=== PATIENT | female | born 1945 | race Caucasian/White ===

== ENCOUNTER 2019-09-07 10:05 | Observation (INO) ==
--- NOTE | 2019-09-03 09:09 | PAT Medication Instructions ---
Medication Instructions Date of Service September 03, 2019 Home Medications Medication Instructions Recorded meloxicam 15 mg tablet 15 mg PO DAILY PRN #30 tab 04/17/19 miscellaneous medical supply #1 ea 08/13/19 meloxicam 15 mg tablet 15 mg PO DAILY PRN acetaminophen [Tylenol Extra Strength] 1,000 mg PO Q6H PRN ascorbic acid (vitamin C) [Vitamin C] 500 mg PO BID fexofenadine 180 mg PO QAM losartan 25 mg PO QAM multivitamin 1 tab PO QAM pantoprazole 40 mg PO BID pravastatin 40 mg PO QPM ASK your surgeon for instructions meloxicam 15 mg tablet 15 mg PO DAILY PRN DO NOT take the morning of surgery fexofenadine 180 mg PO QAM losartan 25 mg PO QAM multivitamin 1 tab PO QAM ascorbic acid (vitamin C) [Vitamin C] 500 mg PO BID Take morning of surgery With a small sip of water, OTHERWISE NOTHING TO EAT OR DRINK AFTER MIDNIGHT: pantoprazole 40 mg PO BID acetaminophen [Tylenol Extra Strength] 1,000 mg PO Q6H PRN (okay to take up to 4 hours prior to surgery if needed) Take evening before surgery pantoprazole 40 mg PO BID pravastatin 40 mg PO QPM acetaminophen [Tylenol Extra Strength] 1,000 mg PO Q6H PRN (if needed) ascorbic acid (vitamin C) [Vitamin C] 500 mg PO BID Other Notes If you have any questions please call us at [phone] or [phone] or [phone] or [phone]
--- NOTE | 2019-09-03 10:59 | Anesthesiology Consultation ---
Date of Service September 03, 2019 Assessment & Plan (1) Encounter for pre-operative examination: Chart Review Chart Review: Acceptable Risk for Surgery and Patient seen in Pre Admission Testing Per PAT appt on 09/03/19, pt resides in [facility]- otherwise denies travel. Pt denies any known contact with PUI/Covid positive patients. No current Covid related symptoms. Pt getting Covid testing done three days prior to surgery- results pending Teaching & Discussion Pre-Anesthesia Teaching/Discussion Notes: Instructed NPO after midnight before surgery,except medications with 15 cc of water. Medication instructions provided according to the PAT guidelines. History Surgery Operation Date: 09/07/19 07:00 Proposed Procedures p Right Total Knee Arthroplasty - Loc Frey MD Height/Weight Height: 4 ft 11 in Weight: 81.2 kg Allergies Allergy/AdvReac Type Severity Reaction Status Date / Time No Known Allergies Allergy Verified 08/30/19 11:33 Medications Home Medications Medication Instructions Recorded Confirmed Last Taken meloxicam 15 mg tablet 15 mg PO DAILY PRN #30 tab 04/17/19 08/30/19 Unknown acetaminophen [Tylenol Extra 1,000 mg PO Q6H PRN 07/05/19 08/30/19 Unknown Strength] ascorbic acid (vitamin C) [Vitamin 500 mg PO BID 07/05/19 08/30/19 Unknown C] fexofenadine 180 mg PO QAM 07/05/19 08/30/19 Unknown losartan 25 mg PO QAM 07/05/19 08/30/19 Unknown multivitamin 1 tab PO QAM 07/05/19 08/30/19 Unknown pantoprazole 40 mg PO BID 07/05/19 08/30/19 Unknown pravastatin 40 mg PO QPM 07/05/19 08/30/19 Unknown miscellaneous medical supply #1 ea 08/13/19 08/30/19 Unknown Past Medical History Medical History GERD (gastroesophageal reflux disease) Well controlled and stable Hyperlipidemia Hypertension Osteoarthritis Exercise / Class Metabolic Activity II 4-5 Yardwork/Stairs/Walk up hill (one flight of stairs - no chest pain or SOB ) Past Family History Family History Sister Family history of diabetes mellitus Mother Family history of diabetes mellitus Other No family history of adverse response to anesthesia Past Surgical History Surgical History History of arthroscopy of right knee History of colonoscopy History of dilatation and curettage History of esophagogastroduodenoscopy (EGD) History of tooth extraction History of total hysterectomy with bilateral salpingo-oophorectomy (BSO) History of wisdom tooth extraction Past Anesthesia History No Hx of Anesthesia Complications and No Family Hx of Anesthesia Complications History of PONV No Hx of PONV and No Hx of Motion Sickness Social History Smoking Status: Former smoker Do You Dip or Chew Tobacco: No Smoking End Date: quit 1971 Hx Alcohol Use: No Hx Substance Use: No substance use type: does not use Review of Systems Patient denies chest pain, shortness of breath, dyspnea on exertion, cough, wheezing, palpitations. No hx of seizures, stroke, DE, apnea/snoring. No hx of blood clots or blood transfusions Physical Exam Vital Signs VITALS BP 156/76 P 87 TEMP 98.0 SP02 100% RESP 16 Constitutional no acute distress ENMT Mouth: no TMJ clicking, no chipped teeth and no loose teeth Thyromental Distance: < 3.5 Finger Breadths (3.0) Mallampati Class: III Missing molars. Capped molars Neck + short neck and + thick neck; neck extension not limited Respiratory normal respiratory effort; no respiratory distress Auscultation: lungs clear to auscultation bilaterally; no wheezes Cardiovascular Rate/Rhythm: regular rate and regular rhythm Heart Sounds: no murmur Vessels: no carotid bruit Musculoskeletal Spine: no pain with cervical ROM Neurologic moves all extremities Psychiatric Orientation: alert Testing Laboratory Results 09/03/19 11:11 09/03/19 11:11 PT 10.4 Seconds (9.0-12.0) 09/03/19 11:11 INR 1.0 (0.9-1.1) 09/03/19 11:11 APTT 31.5 Seconds (21.0-31.0) H 09/03/19 11:11 Blood Type O Positive 09/03/19 11:11 Antibody Screen NEGATIVE 09/03/19 11:11 Electrocardiogram Date: 09/03/19 Findings: + NSR @ (96) Nonspecific ST abnormality Chest X-Ray Date: 09/03/19 Findings: + NAD
--- NOTE | 2019-09-03 11:30 | XRay Report ---
XR chest Pre-admission PA/Lat HISTORY: Preop. COMPARISON: None. FINDINGS: The lungs are clear. Cardiac silhouette is normal in size. No pleural effusions. No pneumot horax. IMPRESSION: No acute process. ACT 112: Negative or not required by law. Electronically signed by: Mayo Chisholm M.D. 09/03/2019 11:29 AM
[2019-09-03 12:29] LABS: Basophils # (auto) 0.05 K/uL (0-0.2); Basophils % (auto) 0.5 %; Eosinophils # (auto) 0.37 K/uL (0-0.5); Eosinophils % (auto) 3.6 %; Hematocrit (blood only) 42.6 % (37-47); Hemoglobin 13.6 g/dL (12.0-16.0); Immature Granulocytes # (auto) 0.03 K/uL (0.00-0.02); Immature Granulocytes % (auto) 0.3 %; Lymphocytes # (auto) 2.17 K/uL (1.2-3.4); Mean Corpuscular Hemoglobin 28.5 pg (25-34); Mean Corpuscular Hgb Conc 31.9 g/dL (32-36); Mean Corpuscular Volume 89.1 fL (80-100); Monocytes # (auto) 0.75 K/uL (0.11-0.59); Monocytes % (auto) 7.3 %; Neutrophils # (auto) 6.96 K/uL (1.4-6.5); Neutrophils % (auto) 67.3 %; Platelet Count 381 K/uL (130-400); RDW Coefficient of Variation 14.7 % (11.5-14.5); RDW Standard Deviation 48.5 fL (36.4-46.3); Red Blood Count 4.78 M/uL (4.2-5.4); White Blood Count 10.33 K/uL (4.8-10.8)
[2019-09-03 12:37] LABS: BUN Creatinine Ratio 17.7 (10-20); Calcium 8.9 mg/dl (8.5-10.1); Creatinine Clr Calc Pharmacy 71.1 ml/min; Est GFR (African American) 102.1; Est GFR (Non-African American) 88.1; Potassium 4.1 mmol/L (3.5-5.1)
[2019-09-03 12:38] LABS: C Reactive Protein 0.54 mg/dl (0-0.29)
[2019-09-03 12:42] LABS: Partial Thromboplastin Ratio 1.1; Partial Thromboplastin Time 31.5 Seconds (21.0-31.0); Prothrombin Time 10.4 Seconds (9.0-12.0)
--- NOTE | 2019-09-04 11:32 | Electrocardiogram Report ---
Test Reason : Blood Pressure : / mmHG Vent. Rate : 096 BPM Atrial Rate : 096 BPM P-R Int : 146 ms QRS Dur : 088 ms QT Int : 376 ms P-R-T Axes : 058 067 052 degrees QTc Int : 475 ms Normal sinus rhythm Nonspecific ST abnormality Abnormal ECG No previous ECGs available Confirmed by Man Berry ([id number]) on 09/04/2019 11:32:41 AM Referred By: Loc Frey Confirmed By:Man Berry
[~2019-09-07 10:05] MED LIST: ACETAMINOPHEN 500 MG TAB PO SCH; BUPIVACAINE 0.5 % 5 MG/1 ML PF 10ML VIAL ONE; BUPIVACAINE LIPOSOME/PF 266 MG, BUPIVACAINE/EPINEPHRINE 50 ML, SODIUM CHLORIDE 0.9% 30 ... INFIL SCH; CEFAZOLIN 2000MG 2,000 MG/15 ML SYR IV SCH; FAMOTIDINE 20 MG TAB PO SCH; GABAPENTIN 300 MG CAP PO SCH; LR 500ML BOLUS, THEN 15ML/HR IV SCH; LR 60ML/HR IV SCH; METOCLOPRAMIDE HCL 10 MG TABLET PO SCH; ROPIVACAINE 0.5% 5 MG/ML 30 ML VIAL ONE; TRANEXAMIC ACID 1,000 MG **IV Intra-op IV SCH
--- NOTE | 2019-09-07 10:19 | History & Physical Bridge Note ---
Date of Service September 07, 2019 History & Physical Bridge Note I have examined the patient, reviewed the History & Physical and in the interval since the performance of the History & Physical I have noted the following changes of clinical significance: no changes noted
[2019-09-07] MEDS ORDERED: MIDAZOLAM HCL 1 MG/ML 2ML VIAL ONE (11:32)
[2019-09-07] MEDS ORDERED: fentaNYL citrate 100 MCG/2 ML VIAL ONE (11:32)
[2019-09-07] MEDS ORDERED: ONDANSETRON INJ 2 MG/ML 2 ML VIAL IV PRN ×2 (12:44→16:32)
[2019-09-07] MEDS ORDERED: HYDROmorphone INJ 1 MG/ML SYRINGE IV PRN (12:44)
[2019-09-07] MEDS ORDERED: KETOROLAC 30 MG/ML VIAL IV PRN (12:44)
[2019-09-07] MEDS ORDERED: ATROPINE SULFATE 0.1 MG/ML 10ML SYR IV PRN (12:44)
[2019-09-07] MEDS ORDERED: ePHEDrine sulfate 50 MG/ML AMP IV PRN (12:44)
[2019-09-07] MEDS ORDERED: EpINEphrine HCL INJ 1 MG/ML 1ML SYRINGE ONE (12:54)
[2019-09-07] MEDS ORDERED: BUPIVACAINE 0.25% 30 ML VIAL ONE (12:54)
[2019-09-07] MEDS ORDERED: SODIUM CHLORIDE 0.9% PF 50 ML VIAL ONE (12:54)
[2019-09-07] MEDS ORDERED: BACITRACIN INJ 50,000 UNIT VIAL ONE (12:55)
[2019-09-07] MEDS ORDERED: BUPIVACAINE LIPOSOME 1.3% 266 MG/20 ML VIAL ONE (12:55)
[2019-09-07] MEDS ORDERED: PROPOFOL IV EMULSION 10 MG/ML 20 ML VIAL IV ONE (13:27)
[2019-09-07] MEDS ORDERED: VANCOMYCIN HCL 1000MG/20ML VIAL ONE (13:29)
[2019-09-07] MEDS ORDERED: ONDANSETRON INJ 2 MG/ML 2 ML VIAL ONE (13:40)
--- NOTE | 2019-09-07 14:55 | Post Operative Brief Note ---
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 Right knee bone and tissue. Drains Millard Catheter Anesthesia Type Spinal MAC Complications none Disposition Accompanied Patient To Recovery: No Disposition: Recovery Room
--- NOTE | 2019-09-07 15:19 | Operative Report ---
Post Operative Report Pre & Post Diagnosis Operation Date: 09/07/19 11:50 Pre-Op Diagnosis: Right Knee Degenerative Joint Disease Post-Op Diagnosis: Right Knee Degenerative Joint Disease I identified the patient and participated in the time-out.: Yes Procedure Operation Date: 09/07/19 11:50 Actual Procedures p Right Total Knee Replacement(Right) - Loc Frey MD Surgeon Loc Frey MD Reporter Anchor Priti, PAC Estimated Blood Loss 50 Findings Consistent with Post-Op Diagnosis Operative findings revealed advanced right knee DJD. She had extensive grade 4 [id number] disease and eburnation of the lateral compartment. She had erosive changes of the patellofemoral joint and some fairly mild medial compartment disease. She had a valgus deformity to her knee with a fixed valgus contract ure. She had a very tight IT band. She had a very stiff knee preoperatively with about a 5 to 10 degree flexion contracture and flexion to only about 80 degrees. Fluids 1300 cc Specimens Right knee sent for pathology. Drains None. Anesthesia Type Spinal MAC Complications none Disposition Accompanied Patient To Recovery: No Disposition: Recovery Room Indications Patient is a 73-year-old fairly active elderly female who is had a long history of right knee problems. She had a right knee scope about 20 years ago which gave some temporary relief. Over the past 5 to 10 years she developed increased pain discomfort deformity and stiffness in her knee. She failed all conserva tive treatment. She elected proceed with surgical treatment. Description of Procedure Operative implants consist of: 1. Biomet Vanguard size 62.5 right posterior by femoral component. 2. Biomet size 63 tibial tray. 3. 10 mm posterior box polyethylene insert. 4. 28 x 8 all poly-patella. Patient was taken to the operating room identified and placed on the operating table supine position. All contractors were properly padded. IV antibiotics arrived by anesthesia team. A spinal anesthetic and abductor canal block had provided in the holding area. A Millard catheter was placed in sterile fashion. A right thigh turn was then placed in the right lower extremities and prepped and draped in usual sterile fashion. The right leg was elevated exsanguinated with use of an Esmarch and turns placed at 3 mmHg. An anterior approach to the right knee was then performed to longitudinal incision centered over the patella. Sharp dissection was gone through subcutaneous tissue down to level the extensor mechanism. A medial parapatellar arthrotomy incision was made. Some subperiosteal dissection was carried out medially. The fat pad was resected from each patella tendon. The lateral patellofemoral ligament was released. Patella was subluxated laterally and the knee was flexed. The osteophytes were taken off the distal femur. The ACL and PCL were then released in the distal femur and the tibia subluxated anteriorly. The external tibial alignment jig was then placed in the interface of the tibia and adjusted 12 mm medially. Proximal tibial cut was made to move about 3 to 4 mm of bone from the medial side and about a millimeter or 2 bone from the lateral side. The tibia sized to a size 63. We did have to downsize this a little bit and get prior appropriate rotation of the tibial tray. Attention then drawn to the femur. The distal femur returned with a sharp drill. Intramedullary canal was suction. A right 5 degree valgus cutting guide was placed. The distal femoral cutting block was pinned in place. Distal femoral cut was made to take an additional 5 mm of bone off distal femur as she has significant flexion true contracture and a very tight knee. The femur was then sized to a size 62.5. We downsized this an entire size due to the very narrow medial and lateral dimensions of her femur. The AP cutting block was pinned parallel to the epicondylar axis which was 4 degrees of external rotation. The anterior cut, anterior chamfer, posterior cut, posterior chamfer cuts were made. Box cutting guide was placed in just slight lateral and the box cut was made. The knee was flexed. The remnants of the medial and lateral menisci were excised. The osteophytes were taken off the posterior aspect of the femur. A trial femoral component was placed. Of note, in order to equalize the flexion and extension gaps I did have to release the IT band and some the posterior lateral capsule as well as the popliteus. Great care was taken throughout the procedure protect the peroneal nerve at all times. The tibial tray was then pinned in maximum external rotation and the drill and stem punch were used to create defect in proximal tip for the tibial tray. The knee was then trialed the 10 mm insert fit most appropriately. Attention drawn the patella. The patella was cleaned of all soft tissues. Patella thickness measured 19 mm in thickness was cut down to 12. Size a size 28 patella. The locals were drilled for the 28 patella. The lateral osteophyte is moved. Patella button was placed. Knee was taken through range of motion and patella tracked well with no thumbs test. Attention drawn to placing the permanent components. All trial components were removed. Bone plug was placed in the disc femur limit blood loss put a double batch Palacos G cement was mixed. We did add an additional gram of vancomycin due to her history of lymphedema and edema in the right lower extremity. A Biomet Vanguard size 62.5 right posterior by femoral component, size 63 tibial tray, 10 mm posterior box polyethylene insert, and a 28 x 8 all poly-patella were then cemented in place. Knee was brought out into full extension until cement hardened. Final cement check was then performed. Pericapsular tissues were injected with a total of 100 cc of combination of 20 cc of Exparel, 30 cc normal saline, 50 cc of quarter percent Marcaine with epinephrine. Patient did receive 1 g of tranexamic acid. The tourniquet was then let down for final tourniquet time of 56 minutes. Hemostasis assured use electrocautery. The wounds once again irrigated. Extensor mechanism then closed with combination 1 PDS suture #1 Vicryl suture in [id number] fashion. Extensor mechanism checked found to be intact and subcutaneous tissue was then closed with 2 Dexon suture in a buried interrupted fashion skin was closed skin kianna. Leg was then cleaned dried a sterile dressing composed Xeroform, 4 x 4's, sterile cast padding, Jesus bandage were applied. Patient then transferred to the recovery room in stable condition. Patient tolerated procedure well and there were no complications. I attest to the content of the Intraoperative Record and any orders documented therein. Any exceptions are noted below.
--- NOTE | 2019-09-07 15:27 | XRay Report ---
XR knee RT 1 or 2V routine CLINICAL HISTORY: Postop examination COMPARISON: None. DISCUSSION: There are postsurgical changes of a total right knee arthroplasty and patellar resurfacin g. There is gas present within the soft tissues consistent with recent surgery. There are overlying s kin kianna. The femoral tibial components appear well seated. IMPRESSION: Postsurgical changes of a total right knee arthroplasty. ACT 112: Negative or not required by law. Electronically signed by: Pierre Quintana M.D. 09/07/2019 3:26 PM
--- NOTE | 2019-09-07 16:04 | Anesthesiology Progress Note ---
Date of Service September 07, 2019 Anesthesia Post Procedure Vital Signs Vital Signs: Temp Pulse Pulse Resp BP BP Pulse Ox 09/07/19 15:50 78 18 137/54 L 94 09/07/19 15:40 80 16 129/60 93 09/07/19 15:30 82 12 122/61 99 09/07/19 15:20 82 20 128/61 96 09/07/19 15:10 85 16 125/56 L 97 09/07/19 15:01 36.7 C 100 H 13 133/55 L 99 09/07/19 10:38 36.7 C 102 H 20 168/80 H 99 Transfer of Care Handoff Completed per policy Notes Mental Status: alert / awake / arousable and participated in evaluation Patient Amnestic to Procedure: Yes Nausea / Vomiting: adequately controlled Pain: adequately controlled Airway Patency, RR, SpO2: stable & adequate BP & HR: stable & adequate Hydration State: stable & adequate Neuraxial Anesthesia: was administered and sensory block is resolving Anesthetic Complications: no major complications apparent
[2019-09-07] MEDS ORDERED: NALOXONE HCL 0.4 MG/1 ML VIAL/CARP IV PRN (16:32)
[2019-09-07] MEDS ORDERED: METOCLOPRAMIDE HCL INJ 5 MG/ML 2 ML VIAL IV PRN (16:32)
[2019-09-07] MEDS ORDERED: MAGNESIUM HYDROXIDE SUSP 30 ML UDC PO PRN (16:32)
[2019-09-07] MEDS ORDERED: ALUMINUM/MAGNESIUM SUSP 30 ML UDC PO PRN (16:32)
[2019-09-07] MEDS ORDERED: bisacodyL 10 MG SUPP PR PRN (16:32)
[2019-09-07] MEDS ORDERED: HYDROmorphone INJ 0.5 MG/0.5 ML SYR IV PRN (16:32)
[2019-09-07] MEDS: SODIUM CHLORIDE 0.9% 1000ML 1,000 ML IV SCH (17:41)
[2019-09-07] MEDS: KETOROLAC TROMETHAMINE 15 MG/ML VIAL IV SCH (18:35)
[2019-09-07] MEDS: TRAMADOL HCL 50 MG TABLET PO PRN (19:45)
[2019-09-07] MEDS: ASCORBIC ACID 500 MG TAB PO SCH (19:45)
[2019-09-07] MEDS: FERROUS GLUCONATE 324 MG TAB PO SCH (19:45)
[2019-09-07] MEDS: PANTOprazole 40 MG TAB PO SCH (19:56)
[2019-09-07] MEDS ORDERED: PANTOprazole 40 MG TAB PO SCH (21:00)
[2019-09-07] MEDS ORDERED: NON-FORMULARY MEDICATION (Ascorbic Acid (Vitamin C) [Vitamin C] 500 MG) PO SCH (21:00)
[2019-09-07] MEDS ORDERED: TRANEXAMIC ACID / 0.7% NACL 1,000 MG/100 ML BAG IV SCH (21:08)
[2019-09-07] MEDS: SENNA 8.6 MG TAB PO SCH (21:40)
[2019-09-07] MEDS: DOCUSATE SODIUM 100 MG CAP PO SCH (21:41)
[2019-09-07] MEDS: ACETAMINOPHEN 500 MG TAB PO SCH (21:41)
[2019-09-07] MEDS: PRAVASTATIN SOD 40 MG TAB PO SCH (21:41)
[2019-09-07] MEDS: ASPIRIN 81 MG ECTAB PO SCH (21:41)
[2019-09-07] MEDS: CEFAZOLIN 2000MG 2,000 MG/15 ML SYR IV SCH (21:57)
[2019-09-08] MEDS: KETOROLAC TROMETHAMINE 15 MG/ML VIAL IV SCH ×5 (00:15→23:54)
[2019-09-08] MEDS: SODIUM CHLORIDE 0.9% 1000ML 1,000 ML IV SCH (04:38)
[2019-09-08] MEDS: CEFAZOLIN 2000MG 2,000 MG/15 ML SYR IV SCH (05:53)
[2019-09-08] MEDS: ACETAMINOPHEN 500 MG TAB PO SCH ×3 (05:53→21:52)
[2019-09-08 06:08] LABS: Hematocrit (blood only) 33.5 % (37-47); Hemoglobin 10.2 g/dL (12.0-16.0); Mean Corpuscular Hemoglobin 27.5 pg (25-34); Mean Corpuscular Hgb Conc 30.4 g/dL (32-36); Mean Corpuscular Volume 90.3 fL (80-100); Mean Platelet Volume 9.7 fL (7.4-10.4); Platelet Count 287 K/uL (130-400); RDW Coefficient of Variation 14.9 % (11.5-14.5); RDW Standard Deviation 49.8 fL (36.4-46.3); Red Blood Count 3.71 M/uL (4.2-5.4); White Blood Count 11.54 K/uL (4.8-10.8)
[2019-09-08 06:43] LABS: BUN Creatinine Ratio 24.8 (10-20); Calcium 8.2 mg/dl (8.5-10.1); Creatinine Clr Calc Pharmacy 61.2 ml/min; Est GFR (African American) 91.7; Est GFR (Non-African American) 79.1; Potassium 3.9 mmol/L (3.5-5.1)
[2019-09-08] MEDS: ASCORBIC ACID 500 MG TAB PO SCH ×2 (08:26→17:42)
[2019-09-08] MEDS: ASPIRIN 81 MG ECTAB PO SCH ×2 (08:26→21:51)
[2019-09-08] MEDS: PANTOprazole 40 MG TAB PO SCH ×2 (08:26→16:24)
[2019-09-08] MEDS: FEXOFENADINE HCL 180 MG TAB PO SCH (08:27)
[2019-09-08] MEDS: DOCUSATE SODIUM 100 MG CAP PO SCH ×2 (08:27→21:51)
[2019-09-08] MEDS: FERROUS GLUCONATE 324 MG TAB PO SCH ×2 (08:28→17:42)
[2019-09-08] MEDS: LOSARTAN POTASSIUM 25 MG TAB PO SCH (08:28)
[2019-09-08] MEDS: MULTIVITAMIN TAB PO SCH (08:29)
--- NOTE | 2019-09-08 08:48 | Progress Notes ---
DATE: 09/08/2019 SUBJECTIVE: A 73-year-old female postop day 1 from a right knee replacement. She is doing pretty well. Had a pretty good night. Pain is controlled. No chest pain or shortness of breath. Not feeling dizzy or lightheaded. OBJECTIVE: VITAL SIGNS: Temperature 36.5. Vital signs stable. GENERAL: Pleasant elderly female. She is lying in bed, looks comfortable. LUNGS: Clear to auscultation. HEART: Has a regular rate and rhythm. ABDOMEN: Soft, nontender, nondistended. EXTREMITIES: Grossly neurovascularly intact except as follows. Examination of the right leg reveals the dressing to be clean, dry and intact. Leg is well aligned. She can dorsiflex and plantarflex her foot appropriately. She is neurologically intact. ASSESSMENT: A 73-year-old female postop day 1 from right knee replacement, doing well. Pain is controlled. She is neurologically intact. PLAN: 1. DVT prophylaxis include thigh-high TEDs, SCDs and aspirin twice a day. 2. PT/OT, weight bear as tolerated. Right total knee protocol. 3. Pain control, doing well with current pain regimen. 4. Anemia. She is slightly anemic with hemoglobin 10.5. She is asymptomatic. Will continue iron supplementation. 5. Disposition: She is planning to be discharged to home with some home health once adequately recovered and medically stable.
[2019-09-08] MEDS ORDERED: MULTIVITAMIN TAB PO SCH (09:00)
[2019-09-08] MEDS ORDERED: PANTOprazole 40 MG TAB PO SCH (20:00)
[2019-09-08] MEDS: PRAVASTATIN SOD 40 MG TAB PO SCH (21:51)
[2019-09-08] MEDS: SENNA 8.6 MG TAB PO SCH (21:51)
[2019-09-09] MEDS: KETOROLAC TROMETHAMINE 15 MG/ML VIAL IV SCH ×2 (06:23→06:46)
[2019-09-09] MEDS: ACETAMINOPHEN 500 MG TAB PO SCH (06:23)
[2019-09-09] MEDS: DOCUSATE SODIUM 100 MG CAP PO SCH (07:24)
[2019-09-09] MEDS: ASPIRIN 81 MG ECTAB PO SCH (07:24)
[2019-09-09] MEDS: FERROUS GLUCONATE 324 MG TAB PO SCH (07:24)
[2019-09-09] MEDS: LOSARTAN POTASSIUM 25 MG TAB PO SCH (07:24)
[2019-09-09] MEDS: MULTIVITAMIN TAB PO SCH (07:25)
[2019-09-09] MEDS: PANTOprazole 40 MG TAB PO SCH (07:25)
[2019-09-09] MEDS: ASCORBIC ACID 500 MG TAB PO SCH (07:25)
[2019-09-09] MEDS: FEXOFENADINE HCL 180 MG TAB PO SCH (07:25)
--- NOTE | 2019-09-09 08:15 | Progress Notes ---
DATE: 09/09/2019 SUBJECTIVE: A 73-year-old female postop day 2 from right knee replacement. She is doing pretty well. Pain has been controlled. Therapy went well. No chest pain or shortness of breath. Not feeling dizzy or lightheaded. OBJECTIVE: VITAL SIGNS: Temperature 37.1. Vital signs stable. GENERAL: Shows a pleasant elderly female. She is lying in bed, looks completely comfortable. EXTREMITIES: Examination of the right leg reveals the leg to be well aligned. Dressing is clean, dry and intact. No significant drainage. She is neurologically intact. ASSESSMENT: A 73-year-old white female postoperative day 2 from right knee replacement, doing well. Pain is controlled. She is neurologically intact. PLAN: 1. DVT prophylaxis including thigh-high TEDs, SCDs, and aspirin twice a day. 2. PT/OT. Weight bear as tolerated. Right total knee protocol. 3. Pain control, doing well with current pain regimen. 4. Disposition: Plan to discharge to home with some home health and her family's assistance later today.
[2019-09-09] MEDS: TRAMADOL HCL 50 MG TABLET PO PRN (10:34)
--- NOTE | 2019-09-12 13:58 | Discharge Summary ---
Date of Service September 12, 2019 Admission HPI Per Admitting Provider Documented in the H&P Admission Exam (Per Admitting) Constitutional Documented in the H&P Discharge Data Consultations 09/07/19 16:32 Consult Case Management - Discharge Planning Routine Procedures Performed Operation Date: 09/07/19 11:50 Actual Procedures p Right Total Knee Replacement(Right) - Loc Frey MD Hospital Course (1) Status post total right knee replacement: 73-year-old female admitted on 09/07/2019 and underwent total knee arthroplasty. She tolerated procedure well and there were no complications. She is transferred to the PACU postoperatively and later the orthopedic for further care. She is given Ancef for antibiotic prophylaxis. She was given ASHLY stockings, SCDs, and aspirin for DVT prophylaxis. Her hemoglobin, hematocrit, vital signs were monitored during her hospital stay remained stable. She developed some postoperative anemia but did not require blood transfusions. She was given iron supplement. There were no complications during her hospital stay. By postoperative day 2 she was tolerating a regular diet, pain was controlled with oral pain medicine she is participating in physical therapy. On postop day 2 she is discharged home set up with home health services. She is given printed discharge instruction as well as new prescription for extra strength Tylenol, aspirin and tramadol. Continue her home medicines. Continue physical therapy. She is weightbearing as tolerated. Continue ASHLY stockings. Follow-up in approximately 2 weeks postoperatively or sooner if there are any problems or concerns. Coding Level of Care Code None Diagnoses Status post total right knee replacement Z96.651
== END 2019-09-09 12:19 | disposition home health service (06) ==
LOC: ASU 10:05 → 3E 10:05